=== PATIENT | male | born 1945 | race Caucasian/White ===

== ENCOUNTER → 2024-02-03 06:36 | Day surgery (SDC) | payer MEDICARE, OTHER, SELFPAY ==
[2024-02-03 07:43] LABS: Glucose - Point of Care 110 mg/dl (70-99)
== END ==
LOC: GI 06:36
PROVIDERS: ATTENDING PHYSICIAN Internal Medicine; FAMILY PHYSICIAN Radiology Vascular & Interventional Radiology
DX: Z12.11 Encounter for screening for malignant neoplasm of colon (principal); D12.3 Benign neoplasm of transverse colon; D12.5 Benign neoplasm of sigmoid colon; K63.5 Polyp of colon; K55.20 Angiodysplasia of colon without hemorrhage; K57.30 Diverticulosis of large intestine without perforation or abscess without bleeding; N40.2 Nodular prostate without lower urinary tract symptoms; K22.89 Other specified disease of esophagus; K44.9 Diaphragmatic hernia without obstruction or gangrene; K31.89 Other diseases of stomach and duodenum; R12 Heartburn; Z86.010 Personal history of colon polyps; Z13.810 Encounter for screening for upper gastrointestinal disorder
CPT/HCPCS: 45385; 43239; 88305; 82962; 88342

== ENCOUNTER → 2024-02-12 11:08 | Outpatient (REF) | payer MEDICARE, OTHER, SELFPAY | LOC: RAD 11:08 | PROVIDERS: ATTENDING PHYSICIAN Surgery Vascular Surgery; FAMILY PHYSICIAN Family Medicine | DX: I73.9 Peripheral vascular disease, unspecified (principal) | CPT/HCPCS: 93922; 93925 ==

== ENCOUNTER → 2024-02-18 13:04 | Outpatient (REF) | payer MEDICARE, OTHER, SELFPAY | LOC: RAD 13:04 | PROVIDERS: ATTENDING PHYSICIAN Internal Medicine Cardiovascular Disease; FAMILY PHYSICIAN Family Medicine | DX: Z98.890 Other specified postprocedural states (principal); I65.23 Occlusion and stenosis of bilateral carotid arteries | CPT/HCPCS: 93880 ==

== ENCOUNTER → 2025-02-21 10:46 | Outpatient (REF) | payer MEDICARE, OTHER, SELFPAY | LOC: DHVS 10:46 | PROVIDERS: ATTENDING PHYSICIAN Registered Nurse; FAMILY PHYSICIAN Family Medicine | DX: I73.9 Peripheral vascular disease, unspecified (principal) | CPT/HCPCS: 93922; 93925 ==

== ENCOUNTER → 2025-05-12 14:06 | Outpatient (REF) | payer MEDICARE, OTHER, SELFPAY | LOC: RAD 14:06 | PROVIDERS: ATTENDING PHYSICIAN Internal Medicine Cardiovascular Disease; FAMILY PHYSICIAN Family Medicine | DX: Z98.890 Other specified postprocedural states (principal); I44.7 Left bundle-branch block, unspecified; I42.8 Other cardiomyopathies; I65.23 Occlusion and stenosis of bilateral carotid arteries | CPT/HCPCS: 93306; 93880 ==

== ENCOUNTER → 2025-06-22 08:34 | Outpatient (REF) | payer MEDICARE, OTHER, SELFPAY | LOC: MRI 08:34 | PROVIDERS: ATTENDING PHYSICIAN Internal Medicine Cardiovascular Disease; FAMILY PHYSICIAN Family Medicine | DX: I10 Essential (primary) hypertension (principal); I77.9 Disorder of arteries and arterioles, unspecified; E78.5 Hyperlipidemia, unspecified; I51.7 Cardiomegaly | CPT/HCPCS: 75561; 75565; A9585 ==